=== PATIENT | male | born 1955 | race African-American/Black ===

== ENCOUNTER 2016-05-16 13:13 | Emergency (ER) | payer OTHER ==
--- NOTE | 2016-05-16 14:56 | ED ---
Supriya, DoctorPaty, scribed for Hamida Lopez MD on 05/16/16 at 1336 . Respiratory - History of Current Complaint Chief Complaint: EDThroatPain Stated Complaint: THOAT PAIN Time Seen by Provider: 05/16/16 13:22 Hx Obtained From: Patient Onset/Duration: Gradual Onset Timing: Constant Initial Severity: Moderate Current Severity: Moderate Pain Intensity: 3 Character: Cough (Nonproductive) Sputum Amount: None Associated Signs and Symptoms: Nasal Congestion - slight nasal congestion - Allergy/Home Medications Allergies/Adverse Reactions: Allergies Allergy/AdvReac Type Severity Reaction Status Date / Time Penicillins Allergy Anaphylatic Verified 05/16/16 13:16 Shock PMH/Surg Hx/FS Hx/Imm Hx Infectious Disease History: No Infectious Disease History: Denies: Traveled Outside the [place] in Last 30 Days - Social History Alcohol Use: None Substance Use Type: Reports: None Smoking Status (MU): Never Smoked Tobacco Review of Systems ENT: Other Positive: Sore Throat. Negative: Dental Pain, Ear Ache, Nasal Discharge Cardiovascular: Negative Negative: Palpitations, Chest Pain Respiratory: Negative Negative: Shortness Of Breath, Cough Gastrointestinal: Negative Negative: Abdominal Pain, Vomiting, Diarrhea Genitourinary: Negative Negative: no symptoms reported, see HPI, burning, dysuria Musculoskeletal: Negative Negative: Arthralgia, Myalgia, Decreased ROM Skin: Negative Negative: Rash, Bruising Neurological: Negative Negative: Headache, Weakness, Paresthesia Psychological: Normal Negative: Anxious, Depressed All Other Systems Reviewed And Are Negative: Yes Physical Exam Vital Signs On Initial Exam: Initial Vitals Temp Pulse Resp BP Pulse Ox 97.4 F 53 16 155/80 100 05/16/16 13:16 05/16/16 13:16 05/16/16 13:16 05/16/16 13:16 05/16/16 13:16 - [place]bin Coma Scale Coma Scale Total: 15 Diagnostics - Vital Signs Vital Signs Temp Pulse Resp BP Pulse Ox 05/16/16 13:16 97.4 F 53 16 155/80 100 - Laboratory Lab Results: Group A Rapid Strep - Negative Lab Statement: Any lab studies that have been ordered have been reviewed, and results considered in the medical decision making process. - EKG 14:22 Cardiac Rate: Bradycardia - 53 bpm EKG Rhythm: Sinus Rhythm - normal ST Segment: Normal Ectopy: None Re-Evaluation - Re-Evaluation 14:38 Change: Unchanged - Disucssed dx and plan for discharge. Pt was agreeable. 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
[2016-05-16 15:19] VITALS: BP 146/80
--- NOTE | 2016-05-19 15:43 | ED ---
I, Paty Quinn, javi for Hamida Lopez MD on 05/16/16 at 1503 . Progress - Progress Note Progress Note: 60 year old male arrived to [facility] c/o sore throat that began last night after he was playing piano. He reports that the pain worsened this morning, and he reports a cough and slight nasal congestion. He denies fever, recent strep throat, or any PMHx of HTN, DM, HLD, or NE. He lives with his partner and his PCP is Dr. Bass. He has no FHx of NE, HLD, or HTN as well. Physical Exam: General: Well appearing, no pain distress Skin: Warm, Skin Color Reflects Adequate Perfusion, Dry Eyes: EOMI, STEPHENIE ENT: Pharynx normal, TMs normal Neck: Supple, nontender Respiratory: CTA, breath sounds present, no rhonchi, no wheezes, no rales Cardiovascular: RRR, no murmur, no rub, no gallop Abdomen: Soft, nontender, Non-distended, no guarding, no rebound Bowel: Present Musculoskeletal: CURRY, No edema Neuro: Sensory/motor intact, A&Ox3, CN intact 2-12 Psych: Affect/mood appropriate Re-Evaluation - Re-Evaluation 14:38 Change: Unchanged - Disucssed dx and plan for discharge. Pt was agreeable. 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
== END 2016-05-16 15:17 | disposition home or self-care (01) ==
LOC: ED 13:13
DX: J02.9 Acute pharyngitis, unspecified (principal); R05 Cough; R09.81 Nasal congestion
CPT/HCPCS: 87651; 93005; 99281

== ENCOUNTER 2016-08-30 12:27 | Emergency (ER) | payer SELFPAY ==
[2016-08-30 15:44] VITALS: BP 150/90
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
== END 2016-08-30 15:44 | disposition home or self-care (01) ==
LOC: ED 12:27
DX: S16.1XXA Strain of muscle, fascia and tendon at neck level, initial encounter (principal); V49.9XXA Car occupant (driver) (passenger) injured in unspecified traffic accident, initial encounter; Y93.89 Activity, other specified; Y92.9 Unspecified place or not applicable
CPT/HCPCS: 99284